=== PATIENT | female | born 2005 | race Caucasian/White ===

== ENCOUNTER 2024-08-12 21:50 | Emergency (ER) | payer MEDICAID, SELFPAY ==
[2024-08-12 21:50] VITALS: BMI 37.3
[2024-08-12 22:36] VITALS: BP 136/78; PULSE 113; RESP 18; TEMP 37.6; O2SAT 99
--- NOTE | 2024-08-12 22:43 | XR_ITS ---
Examination: PA lateral chest 2 views TECHNIQUE: Upright PA and lateral chest 2 views Date and time: July, August 12, 2024, 11:59 PM INDICATIONS: Fever shortness of breath wheezing beginning 2 weeks ago FINDINGS: Fairly diffuse pneumonia in the mid and lower lung zone on the right Normal heart size Left lung clear IMPRESSION: Significant right lung pneumonia
--- NOTE | 2024-08-12 22:43 | EDNOTE_ITS ---
Upper Respiratory Inf. RME/HPI General Chief Complaint: Flu Like Symptoms Stated Complaint: FLU LIKE SYMPTOMS Time Seen by Provider: 08/12/24 22:07 Source: patient, RN notes reviewed and old records reviewed Arrival date/time: 08/12/24 21:50 Mode of arrival: ambulatory Limitations: no limitations RME / HPI RME / HPI Narrative: 19yof presents to ED for 3-day history of congestion and cough. Patient was evaluated by PCP at symptom onset; tested negative for strep and flu. Patient has taken Sudafed and cough suppressant with little relief. No shortness of breath, chest pain, nausea/vomiting or dizziness reported. Patient reports intermittent fevers. Related Data Previous Rx's ?Medication ?Instructions ?Recorded albuterol sulfate 90 mcg/actuation 2 puff inhalation Q 4H PRN 08/13/24 aerosol inhaler shortness of breath or wheez ing #18 grams amoxicillin 875 mg-potassium 1 tab PO BID 7 days #14 t abs 08/13/24 clavulanate 125 mg tablet azithromycin 250 mg tablet See Rx Instructions PO .COM PLEX #6 08/13/24 tabs dextromethorphan-guaifenesin ER 60 1 tab PO BID PRN co ngestion/cough 08/13/24 mg-1,200 mg tab,extend #20 tabs release,12hr (Mucinex DM) prednisone 50 mg tablet 50 mg PO QDAY #5 tabs Allergies Allergy/AdvReac Type Severity Reaction Status Date / Time No Known Allergies Allergy Verified 01/31/21 09:33 Review of Systems Review of Systems Systems Reviewed: All systems reviewed, normal except as documented Constitutional Constitutional: Reports chills and Reports fever(s) ENT Ears, Nose, Mouth, and Throat: Reports nasal congestion Cardiovascular Cardiovascular: Denies chest pain and Denies dyspnea Respiratory Respiratory: Reports chest congestion, Reports cough and Denies dyspnea Gastrointestinal Gastrointestinal: Denies nausea and Denies vomiting Past Medical History Past Medical History GASTROINTESTINAL: Positive Obesity Surgical History SURGICAL: Positive Tonsillectomy and Adenoidectomy OTHER SURGICAL HX: Pilonidal cystectomy Social History SMOKING STATUS: Never smoker SUBSTANCE USE: does not use ALCOHOL: Never ED Exam General Limitations: Present no limitations General appearance: Present alert, in no apparent distress and obese Head Head exam: Present atraumatic and normocephalic Eye Eye exam: Present normal appearance, PERRL and EOMI ENT ENT exam: Present normal oropharynx, mucous membranes moist, TM's normal bilaterally and other (Mild UAC) Neck Neck exam: Present normal inspection and full ROM Chest Chest inspection: Present normal inspection and symmetric chest wall rise Respiratory Respiratory exam: Present other (Rhonchi on right); Absent respiratory distress, wheezes or accessory muscle use Cardiovascular Cardiovascular exam: Present normal rhythm and tachycardia (Mild) Extremities Exam Extremities exam: Present normal inspection and full ROM; Absent pedal edema Neurological Exam Neurological exam: Present alert and oriented X3 Psychiatric Psychiatric exam: Present normal affect and normal mood Skin Skin exam: Present warm, dry, intact and normal color Course Quality Measures none Orders Category Date Time Status Bedside COVID-19 Antigen Test NOW Care 08/12/24 22:43 Completed CXR2 [XR chest 2V] Stat Exams 08/12/24 22:43 Completed Vital Signs Vital signs: Vital Signs Temperature 99.6 F 08/12/24 22:36 Pulse Rate 113 H 08/12/24 22:36 Respiratory Rate 18 08/12/24 22:36 Blood Pressure 136/78 H 08/12/24 22:36 Pulse Oximetry (%) 99 08/12/24 22:36 Oxygen Delivery Method Room Air 08/12/24 22:36 Upper Respiratory Infection MDM Narrative MDM Narrative:: 19yof presents to ED for 3-day history of congestion and cough. Patient was evaluated by PCP at symptom onset; tested negative for strep and flu. Patient has taken Sudafed and cough suppressant with little relief. No shortness of breath, chest pain, nausea/vomiting or dizziness reported. Patient reports intermittent fevers. Will treat for pneumonia. Patient is nontoxic-appearing, afebrile, vitals are stable. No evidence of respiratory distress or hypoxia. Encouraged rest, fluids, symptomatic treatment, fever management prn. Stable for discharge, RTED precautions given. Patient data External records reviewed:: [facility] previous records (11/06/2019 ED visit for urticaria) Clinical information provided by:: patient Social determinants that could affect healthcare access:: other (specify) (Unemployed) Patient has the following chronic illnesses:: obesity How is presenting disease/condition affected by chronic disease/condition?: exacerbated by Evaluation data The following diagnostics were reviewed and interpreted by me:: radiology exam(s) Lab and/or radiology exams considered but not ordered:: covid/flu: Results will not affect treatment plan Interpretation Summary: CXR: Right infiltrates per my read Medications / Prescriptions Medications or Prescriptions considered but not ordered:: none Medication administrations:: none Consultations Consultation(s) initiated? (list below): No Diagnosis Upper Respiratory Differential Diagnosis: upper respiratory infection, sinusitis, viral infection, bronchitis, influenza and other (Pneumonia, covid) Most likely diagnosis given after review of the tests above:: Pneumonia Admission Indicated Admission indicated?: not indicated Admission Request Was there a request for admission?: No Disposition Plan Disposition Plan: Discharge Discharge Attestation Discharge Attestation: The patient and all family members were given an opportunity to ask questions and understood the discharge instructions. Discharge instructions specifically effects, indications for sooner follow up or return to the emergency department, and the expected course of current diagnosis. Patient condition: Stable Discharge Plan Plan Patient Disposition: HOME (Self Care) Patient condition on transfer: Stable Prescriptions/Referrals Prescriptions/Med Rec: New dextromethorphan-guaifenesin [Mucinex DM] 60-1,200 mg tablet extended release 12 hr 1 tab PO BID PRN (Reason: congestion/cough) Qty: 20 0RF albuterol sulfate 90 mcg/actuation HFA aerosol inhaler 2 puff inhalation Q4H PRN (Reason: shortness of breath or wheezing) Qty: 18 0RF azithromycin 250 mg tablet See Rx Instructions .ROUTE .COMPLEX Qty: 6 0RF Rx Instructions: For 250 mg dose pack: take 500 mg today (day 1), then 250 mg for 4 days (days 2-5) amoxicillin-pot clavulanate 875-125 mg tablet 1 tab PO BID 7 Days Qty: 14 0RF prednisone 50 mg tablet 50 mg PO QDAY Qty: 5 0RF Referrals: No Primary/Family,Physician [Primary Care Provider] - In 1 week Problem List Clinical Impression: Pneumonia Patient/Caregiver Discharge Instructions Education Materials: ED Pneumonia (Adult) Print Language: Turkish Stand Alone Forms: Padmini Award Info., Patient Portal Info Letter PA/[employer] Supervising Physician PA/[employer] Supervising Physician: Bhavesh
== END 2024-08-13 01:32 | disposition home or self-care (01) ==
PROVIDERS: Emergency Provider Emergency Medicine
DX: J18.9 Pneumonia, unspecified organism (principal)
CPT/HCPCS: 71046; 87811; 99283